=== PATIENT | female | born 1960 | race Caucasian/White ===

== ENCOUNTER 2017-08-10 11:14 | Emergency (ER) | payer MEDICARE, BC | END 2017-08-10 12:29 | disposition home or self-care (01) | LOC: ERS 11:14 | DX: L03.113 Cellulitis of right upper limb (principal); I25.10 Atherosclerotic heart disease of native coronary artery without angina pectoris; I10 Essential (primary) hypertension; G89.29 Other chronic pain; G43.909 Migraine, unspecified, not intractable, without status migrainosus; M54.9 Dorsalgia, unspecified; E78.5 Hyperlipidemia, unspecified; E11.9 Type 2 diabetes mellitus without complications; J44.9 Chronic obstructive pulmonary disease, unspecified; F41.9 Anxiety disorder, unspecified; F32.9 Major depressive disorder, single episode, unspecified; F17.210 Nicotine dependence, cigarettes, uncomplicated; F17.290 Nicotine dependence, other tobacco product, uncomplicated; Z79.82 Long term (current) use of aspirin; Z79.899 Other long term (current) drug therapy; Z79.4 Long term (current) use of insulin; Z71.6 Tobacco abuse counseling | CPT/HCPCS: 99406 ==

== ENCOUNTER 2018-04-27 08:12 | Outpatient (CLI) | payer MEDICARE, BC ==
[2018-04-27] MEDS ORDERED: Gadobenate Dimeglumine 529 MG/1 ML (20ML VIAL) ONE (11:24)
--- NOTE | 2018-04-27 11:36 | MRI ---
PRE AND POST CONTRAST ENHANCED MRI LUMBAR SPINE: History: History of back surgery, left leg numbness. Technique: Pre and post contrast enhanced MRI of the lumbar spine obtained. FINDINGS: T12-L1: Unremarkable. L1-2: Minimal facet hypertrophy is seen. Some minimal fluid is seen at the L1-2 facet joints. The naya tral canal and neural foramen are patent. L2-3: There is mild facet hypertrophy. Minimal fluid is seen in the facet joints. The central canal a nd neural foramen are patent. L3-4: Some minimal disc desiccation is seen. There is bilateral facet and ligamentum flavum hypertrop hy. The central canal and neural foramen are patent. L4-5: Disc desiccation is seen. There is a broad based disc bulge. Moderate bilateral facet and ligam entum flavum hypertrophy is seen. Fluid is seen in the L4-5 facet joints. No significant degree of ce ntral stenosis seen. The neural foramen are patent. L5-S1: Disc desiccation is seen. There is a minimal broad based disc bulge and bilateral facet hypert rophy. The central canal and neural foramen are patent. IMPRESSION: No significant degree of central or neural foraminal narrowing is seen. POS: [facility]
--- NOTE | 2018-04-27 13:00 | MRI ---
CERVICAL SPINE MRI WITH AND WITHOUT CONTRAST: Date: 04-27-18 History: Numbness of the left fourth and fifth fingers, left upper extremity radiculopathy. Technique: Multiplanar, multisequence MRI images of the cervical spine provided with and without cont rast. FINDINGS: Anterior discectomy and fusion hardware is seen at C5-6 and C6-7 with associated artifact slightly li miting detailed assessment in these regions. There is no anterolisthesis or retrolisthesis noted. The re is straightening of the normal cervical lordosis. No prevertebral soft tissue abnormality. No focal area of signal abnormality on STIR sequencing to suggest the presence of osseous marrow basilio a. C2-3: Prominent facet and uncal vertebral osteophyte formation on the left. No significant central ca nal or neural foraminal stenosis. Minimal disc bulge. C3-4: Mild uncal vertebral and facet osteophyte formation on the right. No central canal or neural fo raminal stenosis. C4-5: Disc space narrowing, disc desiccation and disc bulge with effacement of the ventral thecal sac and mild associated central canal stenosis. No significant neural foraminal stenosis. Anterior right sided osteophyte formation. C5-6: No central canal or neural foraminal stenosis. C6-7: Mild uncal vertebral osteophyte formation on the left. No significant neural foraminal stenosis on either side. No significant central canal stenosis. C7-T1: Mild bilateral facet hypertrophy with no significant central canal or neural foraminal stenosi s. No focal area of signal abnormality is seen within the cervical cord. Post contrast imaging demonstrates no abnormal enhancement involving the contents of the thecal sac, the imaged osseous structures or the intervertebral discs. IMPRESSION: Post-operative and degenerative change seen within the cervical spine as detailed above. POS: [facility]
== END 2018-04-27 08:13 | disposition home or self-care (01) ==
LOC: TBSIIMAG 08:12
PROVIDERS: ATTEND Psychiatry & Neurology Neurology
DX: M51.26 Other intervertebral disc displacement, lumbar region (principal); M50.223 Other cervical disc displacement at C6-C7 level; M47.812 Spondylosis without myelopathy or radiculopathy, cervical region; Z98.890 Other specified postprocedural states
CPT/HCPCS: 72156; 72158; A9579

== ENCOUNTER 2019-02-03 08:05 | Outpatient (CLI) | payer MEDICARE, BC ==
--- NOTE | 2019-02-03 10:26 | RAD ---
PA AND LATERAL VIEWS CHEST: Date: 02/03/19 HISTORY: COPD. FINDINGS: Comparison made with exam of 03/30/18. The heart size is normal. The lungs are expanded without lobar consolidation, pneumothoraces, or pleu ral effusions. There are degenerative changes in the spine. Postop changes and metallic hardware in t he lower cervical spine again noted. IMPRESSION: No acute process. POS: [place]
== END 2019-02-03 08:06 | disposition home or self-care (01) ==
LOC: RAD 08:05
PROVIDERS: ATTEND Internal Medicine Critical Care Medicine
DX: R06.00 Dyspnea, unspecified (principal)
CPT/HCPCS: 71046

== ENCOUNTER 2021-11-28 12:45 | Emergency (ER) | payer MEDICARE, BC ==
[2021-11-28 14:10] LABS: ALT (SGPT) 24 U/L (8-55); AST (SGOT) 17 U/L (5-34); Albumin 4.3 g/dL (3.4-4.8); Alkaline Phosphatase 53 U/L (40-110); Anion Gap 14 mmol/L (10-20); BUN (Urea Nitrogen) 13 mg/dL (9.8-20.1); Bilirubin, Total 0.8 mg/dL (0.2-1.2); Calc. Creatinine Clearance 0 mL/min (70-130); Calcium 9.5 mg/dL (7.8-10.44); Carbon Dioxide 30 mmol/L (23-31); Chloride 101 mmol/L (98-107); Estimated GFR 77; Globulin 2.7 g/dL (2.4-3.5); Glucose 233 mg/dL (80-115); Magnesium 1.9 mg/dL (1.6-2.6); Potassium 3.8 mmol/L (3.5-5.1); Sodium 141 mmol/L (136-145)
[2021-11-28 14:15] LABS: Hemoglobin 13.6 g/dL (12.0-16.0); Mean Corpuscular HGB CONC 32.6 g/dL (32.0-36.0); Mean Corpuscular Hemoglobin 29.8 pg (27.0-31.0); Mean Corpuscular Volume 91.3 fL (78.0-98.0); Mean Platelet Volume 17.1 fL (7.4-10.4); Platelet Count 12 thou/uL (130-400); RBC Distribution Width 15.7 % (11.5-14.5); Red Blood Cell (RBC) Count 4.56 mill/uL (4.20-5.40); White Blood Cell (WBC) Count 20.1 thou/uL (4.8-10.8)
[2021-11-28 14:24] LABS: Band 1 % (5-11); Blast 59 % (0-0); Large Platelets SLIGHT; Lymphocytes 18 % (21-51); MDiff Complete? YES; Monocytes 8 % (0-10); Neutrophil 8 % (42-75); Ovalocytes SLIGHT = 2-5 cells (100X) (0-1/hpf); Platelet Morphology Comment Appears Decreased; Polychromasia SLIGHT = 2-3 cells (100X) (0-2/hpf); Reactive Lymphocytes 6 % (0-10); Reflex for Review?? NO
[2021-11-28] MEDS ORDERED: hydrOXYzine 25 MG TAB ONE (15:38)
[2021-11-28 16:47] LABS: SARS-CoV-2 NAA Rapid Test Not Detected (NotDetected)
[2021-11-28 17:23] LABS: Fibrinogen 351 mg/dL (253-463); INR-International Normal Ratio 1.1; PTT 24.8 sec (22.9-36.1); Prothrombin Time 14.2 sec (12.0-14.7)
[2021-11-28 17:24] LABS: D-Dimer Test 0.49 *mcg/mL (0.27-0.43)
[2021-11-28 17:27] LABS: Platelet Count 14 thou/uL (130-400)
[2021-11-28 17:59] LABS: Bilirubin Negative (Negative); Blood, Urine Negative (Negative); Clarity Clear (Clear); Glucose, Urine (Dipstick) Greater than 1000 mg/dL (Negative); Ketone, Urine Negative (Negative); Leukocyte Negative Leu/uL (Negative); Nitrite Negative (Negative); Protein, Urine (Dipstick) Negative (Neg-Trace); Specific Gravity, Urine 1.015 (1.002-1.036); Urobilinogen Normal mg/dL (Less than 2)
== END 2021-11-28 20:12 | disposition short-term general hospital (02) ==
LOC: ERS 12:45
DX: D69.6 Thrombocytopenia, unspecified (principal); C95.00 Acute leukemia of unspecified cell type not having achieved remission; I25.10 Atherosclerotic heart disease of native coronary artery without angina pectoris; E11.9 Type 2 diabetes mellitus without complications; I10 Essential (primary) hypertension; F17.210 Nicotine dependence, cigarettes, uncomplicated; E78.5 Hyperlipidemia, unspecified; Z20.822 Contact with and (suspected) exposure to COVID-19; Z79.84 Long term (current) use of oral hypoglycemic drugs; Z79.899 Other long term (current) drug therapy
CPT/HCPCS: 36430; 80053; 81003; 83735; 85025; 85049; 85300; 85362; 85379; 85384; 85610; 85730; 86850; 86900; 86901; 94760; 99285; P9035; U0002; 36415

== ENCOUNTER 2022-01-24 16:07 | Emergency (ER) | payer MEDICARE, BC ==
[2022-01-24 16:41] LABS: Hemoglobin 10.4 g/dL (12.0-16.0); Mean Corpuscular HGB CONC 33.2 g/dL (32.0-36.0); Mean Corpuscular Hemoglobin 31.3 pg (27.0-31.0); Mean Corpuscular Volume 94.5 fL (78.0-98.0); Mean Platelet Volume 13.7 fL (7.4-10.4); Platelet Count 14 thou/uL (130-400); Red Blood Cell (RBC) Count 3.31 mill/uL (4.20-5.40); White Blood Cell (WBC) Count 0.8 thou/uL (4.8-10.8)
[2022-01-24 16:57] LABS: ALT (SGPT) 36 U/L (8-55); AST (SGOT) 12 U/L (5-34); Albumin 4.3 g/dL (3.4-4.8); Alkaline Phosphatase 60 U/L (40-110); Anion Gap 12 mmol/L (10-20); BUN (Urea Nitrogen) 22 mg/dL (9.8-20.1); Bilirubin, Total 0.4 mg/dL (0.2-1.2); Calc. Creatinine Clearance 0 mL/min (70-130); Calcium 9.7 mg/dL (7.8-10.44); Carbon Dioxide 31 mmol/L (23-31); Chloride 103 mmol/L (98-107); Estimated GFR 87; Globulin 2.9 g/dL (2.4-3.5); Glucose 157 mg/dL (80-115); Protein, Total 7.2 g/dL (5.8-8.1); Sodium 142 mmol/L (136-145)
[2022-01-24 17:13] LABS: Anisocytosis SLIGHT = 6-15 cells (100X) (0-5/hpf); Eosinophils 1 % (0-10); Lymphocytes 86 % (21-51); MDiff Complete? YES; Monocytes 1 % (0-10); Neutrophil 1 % (42-75); Ovalocytes SLIGHT = 2-5 cells (100X) (0-1/hpf); Platelet Morphology Comment Appears Decreased; Polychromasia SLIGHT = 2-3 cells (100X) (0-2/hpf); Reactive Lymphocytes 2 % (0-10); Schistocytes SLIGHT = 2-5 cells (100X) (0-1/hpf)
[2022-01-25 00:43] LABS: Hemoglobin 9.6 g/dL (12.0-16.0); Mean Corpuscular HGB CONC 32.6 g/dL (32.0-36.0); Mean Corpuscular Hemoglobin 30.6 pg (27.0-31.0); Mean Corpuscular Volume 93.9 fL (78.0-98.0); Mean Platelet Volume 10.5 fL (7.4-10.4); Platelet Count 25 thou/uL (130-400); RBC Distribution Width 17.8 % (11.5-14.5); Red Blood Cell (RBC) Count 3.13 mill/uL (4.20-5.40); White Blood Cell (WBC) Count 0.6 thou/uL (4.8-10.8)
[2022-01-25 01:26] LABS: Eosinophils 4 % (0-10); Hypochromia SLIGHT = 6-15 cells (100X) (0-5/hpf); Lymphocytes 62 % (21-51); MDiff Complete? YES; Monocytes 4 % (0-10); Neutrophil 30 % (42-75); Platelet Morphology Comment Appears Decreased
== END 2022-01-25 00:52 | disposition home or self-care (01) ==
LOC: ERS 16:07
DX: D69.6 Thrombocytopenia, unspecified (principal); E11.9 Type 2 diabetes mellitus without complications; E78.5 Hyperlipidemia, unspecified; I10 Essential (primary) hypertension; J44.9 Chronic obstructive pulmonary disease, unspecified; F17.210 Nicotine dependence, cigarettes, uncomplicated; Z79.84 Long term (current) use of oral hypoglycemic drugs; Z79.899 Other long term (current) drug therapy
CPT/HCPCS: 36430; 80053; 85025; 86850; 86900; 86901; 93005; 99284; P9035; 36415

== ENCOUNTER 2022-08-09 09:02 | Outpatient (CLI) | payer MEDICARE, BC | END 2022-08-09 09:03 | disposition home or self-care (01) | LOC: TBSIIMAG 09:02 | PROVIDERS: ATTEND Nurse Practitioner Family | DX: M51.16 Intervertebral disc disorders with radiculopathy, lumbar region (principal); M47.26 Other spondylosis with radiculopathy, lumbar region | CPT/HCPCS: 72148 ==